=== PATIENT | female | born 1955 | race Caucasian/White ===

== ENCOUNTER → 2016-11-21 | Outpatient (CLI) | payer OTHER, MEDICAID | LOC: FIMAGING 13:19 | PROVIDERS: ATTEND Internal Medicine | DX: M54.5 Low back pain (principal); G89.29 Other chronic pain; V09.00XA Pedestrian injured in nontraffic accident involving unspecified motor vehicles, initial encounter; M43.16 Spondylolisthesis, lumbar region; M41.9 Scoliosis, unspecified ==

== ENCOUNTER 2017-05-20 08:46 | Emergency (ER) | payer OTHER, MEDICAID ==
[2017-05-20] MEDS ORDERED: IBUPROFEN 600 MG TAB PO ONE ×2 (08:59→09:17)
[2017-05-20 09:00] VITALS: RESP 18; TEMP 98
[2017-05-20] MEDS ORDERED: IBUPROFEN 200 MG TAB PO ONE (09:02)
[2017-05-20] MEDS ORDERED: ACETAMINOPHEN 500 MG TAB PO ONE (09:08)
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
[2017-05-20 09:25] VITALS: BP 137/62; PULSE 78; O2SAT 94
== END 2017-05-20 09:24 | disposition home or self-care (01) ==
LOC: CED 08:46
PROC: 2W2MX4Z Dressing of Left Lower Extremity using Bandage (ICD-10-PCS; principal; 2017-05-20)
DX: T24.212A Burn of second degree of left thigh, initial encounter (principal); T24.102A Burn of first degree of unspecified site of left lower limb, except ankle and foot, initial encounter; Z87.891 Personal history of nicotine dependence; X10.0XXA Contact with hot drinks, initial encounter

== ENCOUNTER → 2017-10-08 | Outpatient (CLI) | payer OTHER, MEDICAID | LOC: FIMAGING 14:37 | PROVIDERS: ATTEND Internal Medicine | DX: M25.472 Effusion, left ankle (principal); M25.572 Pain in left ankle and joints of left foot ==

== ENCOUNTER → 2017-11-12 | Outpatient (CLI) | payer OTHER, MEDICAID | LOC: FIMAGING 09:20 | PROVIDERS: ATTEND Orthopaedic Surgery | DX: M65.872 Other synovitis and tenosynovitis, left ankle and foot (principal) ==

== ENCOUNTER 2018-01-07 11:38 | Emergency (ER) | payer OTHER, MEDICAID ==
--- NOTE | 2018-01-07 12:44 | EDPHY ---
H & P Time Seen by Provider: 01/07/18 11:49 HPI/ROS: This patient presents with concern of potential wound infection at the site of apparent peroneus tendon repair performed by Dr. Long Claros 5 weeks ago without complication. However, she reports that she felt that the walking boot she was using was chafing up against her skin in her cause blisters on the medial aspect of her leg that they were treating with local wound care without antibiotics and some chafing at the wound site is well. Over the past 4 days she developed increasing redness and moderate discomfort with associated swelling. She took 400 mg of ibuprofen 730 this morning reports partial improvement bring her to current pain level 4/10 described as achy in nature. There was no purulence from the lower portion of the wound as it traverses inferior to the malleolus but there is achiness and redness to that area. She reports that 2 days ago there was trace amount of white discharge from the superior aspect of the surgical incision. She denies any other associated symptoms. She came in by private vehicle today. ROS: Constitutional: No fevers or fatigue. GI: No nausea or vomiting Integumentary: No skin rash or lesions elsewhere at this time. 5 point ROS is otherwise negative. Past Medical/Surgical History: Hypothyroidism Bipolar Peroneus tendon repair [address] Sammy Claros Smoking Status: Former smoker Physical Exam: Physical Exam Vital signs are normal. General: No acute distress Lungs: No respiratory distress. Cardiac: Brisk capillary refill is intact throughout. Pulses are 2+ and symmetric in the affected extremity. Left ankle: There is a surgical incision to the lateral aspect of the ankle but start superior to the malleolus and extends inferior to the lateral malleolus. There is erythema along the wound with associated tenderness mild edema to the inferior portion and at the superior portion there are 2 small areas that seem minimally fluctuant less than a cm in diameter each. She has no pain with passive range of motion of the ankle and flexion extension or inversion. There is no swelling of the ankle joint. No tenderness along the Achilles. No medial swelling or tenderness. Skin: No rash or pallor. Skin findings ankle as above. No other skin rashes noted. Neuro: Alert with no sensorimotor deficits in the affected extremity. Initial differential diagnosis: Superficial wound infection, doubt infectious tenosynovitis. Constitutional: Initial Vital Signs Temperature (C) 36.8 C 01/07/18 11:43 Heart Rate 71 01/07/18 11:43 Respiratory Rate 16 01/07/18 11:43 Blood Pressure 105/61 01/07/18 11:43 O2 Sat (%) 99 01/07/18 11:43 O2 Delivery Mode Room Air Allergies/Adverse Reactions: metronidazole [From Flagyl] Allergy (Verified 01/07/18 11:47) PT REPORTS BLISTERS Metronidazole HCl [From Flagyl] Allergy (Verified 01/07/18 11:47) PT REPORTS BLISTERS Home Medications: Medication Instructions Recorded clonazePAM [klonoPIN (*)] 10/04/14 Levothyroxine [Synthroid 112 mcg 02/19/16 (*)] lamoTRIgine [Lamictal] 02/19/16 Cephalexin [Keflex (*)] 500 mg PO TID #30 cap 01/07/18 MDM/Departure - MDM Procedures: Simple I&D abscess: After verbal consent he has chlorhexidine scrub, 1% plain lidocaine with 27 gauge needle to the to fluctuate area superior aspect of the wound an 18 gauge needle to drain trace amount of purulent-appearing drainage. With massage there is no further purulence to the area. Patient tolerated this well without complications. A wound culture sent and pending. A dressing was then placed by our nurse. Medications Given: Ceftriaxone Sodium/Dextrose (Rocephin 1 Gm (Premix)) 50 mls @ 100 mls/hr IV EDNOW ONE PRN Reason: Protocol Stop: 01/07/18 12:50 Last Admin: 01/07/18 12:34 Dose: 50 mls ED Course/Re-evaluation: IV ceftriaxone 1 g Labs: CBC normal with a white count of 6.6 Discussion: Patient presents with findings of superficial wound infection at the surgical incision potentially attributable to chafing from her walker boot. Due to the proximity to the underlying tendon, proceeded with IV antibiotics here though at this time it does not seem that the patient has findings that would suggest infectious tenosynovitis. There is also no clinical evidence that would suggest a septic joint. I called [facility]-Dr. Claros is not there today. I left a phone message with her mid-level practitioner regarding this presentation. A 2nd call was placed at 12:50 p.m. in attempt to reach the on-call practitioner to speak with them directly. I spoke with Dr. Henriquez on-call for Dr. Claros at 12:55 p.m. Regarding this patient's presentation. He agrees with treatment plan and will facilitate close follow up with Dr. Claros for a recheck. - Depart Disposition: Home, Routine, Self-Care Clinical Impression: Superficial postoperative wound infection Qualifiers: Encounter type: initial encounter Qualified Code(s): T81.4XXA - Infection following a procedure, initial encounter Condition: Good Instructions: Wound Infection (ED) Additional Instructions: Diagnosis: Superficial wound infection Plan: Clean wound daily with warm soapy water Apply warm packs to 3 times a day for 20 min at a time Ibuprofen Tylenol for discomfort as needed Keflex antibiotic as prescribed. Call Dr. Claros to arrange follow-up appointment for a recheck sometime within the next few days. Return emergency department for any significant worsening despite treatment plan If you where the walker boot in the future be sure to place a dressing over the area such as gauze and an Jacky wrap prior to wearing the boot to prevent chaffing. Removed the dressing when you are applying warm packs as the oxygen gets to the affected area. Referrals: Mercedes Munoz [Primary Care Provider] - As per Instructions
[2018-01-07 13:14] VITALS: BP 99/58
== END 2018-01-07 13:04 | disposition home or self-care (01) ==
LOC: CED 11:38
DX: T81.4XXA Infection following a procedure, initial encounter (principal); Z87.891 Personal history of nicotine dependence; Y82.8 Other medical devices associated with adverse incidents
CPT/HCPCS: 96365; 99284; J0696

== ENCOUNTER → 2018-03-14 | Outpatient (CLI) | payer OTHER, MEDICAID | LOC: BMCIMAGING 10:36 | PROVIDERS: ATTEND Specialist | DX: R05 Cough (principal) ==